=== PATIENT | female | born 1960 ===

== ENCOUNTER 2016-09-15 10:46 | Day surgery (SDC) | payer OTHER ==
[2016-09-15] MEDS ORDERED: Lactated Ringer's 500 ML IV ONE (11:49)
[2016-09-15 13:09] VITALS: TEMP 97; O2SAT 100
[2016-09-15 13:26] VITALS: BP 107/54; PULSE 63; RESP 14
== END 2016-09-15 13:27 | disposition home or self-care (01) ==
LOC: H.ENDO 10:46
PROVIDERS: ATTEND Internal Medicine Gastroenterology
DX: Z12.11 Encounter for screening for malignant neoplasm of colon (principal); K57.30 Diverticulosis of large intestine without perforation or abscess without bleeding; K64.0 First degree hemorrhoids

== ENCOUNTER 2017-12-22 18:42 | Emergency (ER) | payer OTHER ==
[2017-12-22 19:06] VITALS: RESP 16
[2017-12-22] MEDS ORDERED: Sodium Chloride 0.9% 1,000 ML IV STA (20:20)
[2017-12-22] MEDS ORDERED: Iohexol 240 (50 ml) PO ONE (20:21)
--- NOTE | 2017-12-22 20:23 | ED PDOC ---
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 Associated diffuse abdominal pain, bodyaches, nausea. Denies fever, vomiting, cough, congestion, chest pain, shortness of breath, palpitations, urinary symptoms, recent travel, sick contacts, recent antibiotic use. Patient tried Pepto, Aleve, and Tylenol with minimal relief. Past Medical History Reviewed: Historical Data, Nursing Documentation, Vital Signs Vital Signs: Last Vital Signs Temp 97.6 F 12/22/17 19:03 Pulse 70 12/22/17 19:03 Resp 16 12/22/17 19:03 BP 116/89 12/22/17 19:03 Pulse Ox 99 12/22/17 19:03 - Medical History PMH: No Chronic Diseases Denies: Asthma, Diabetes - Surgical History Surgical History: Appendectomy, Cholecystectomy - Family History Family History: States: No Known Family Hx - Immunization History Hx Tetanus Toxoid Vaccination: No Hx Influenza Vaccination: No Hx Pneumococcal Vaccination: No - Home Medications Home Medications: Ambulatory Orders Medication Instructions Recorded Ciprofloxacin HCl [Cipro] 500 mg PO BID #19 tab 12/23/17 Dicyclomine [Bentyl] 20 mg PO TID PRN #21 tab 12/23/17 metroNIDAZOLE [Flagyl] 500 mg PO TID #29 tab 12/23/17 - Allergies Allergies/Adverse Reactions: Allergies Allergy/AdvReac Type Severity Reaction Status Date / Time No Known Allergies Allergy Verified 12/22/17 19:03 Review of Systems ROS Statement: Except As Marked, All Systems Reviewed And Found Negative Gastrointestinal: Positive for: Nausea, Abdominal Pain, Diarrhea Physical Exam - Reviewed Nursing Documentation Reviewed: Yes Vital Signs Reviewed: Yes - Physical Exam Appears: Positive for: Well, Non-toxic, No Acute Distress Head Exam: Positive for: ATRAUMATIC, NORMAL INSPECTION, NORMOCEPHALIC Skin: Positive for: Normal Color Eye Exam: Positive for: Normal appearance ENT: Positive for: Normal ENT Inspection Cardiovascular/Chest: Positive for: Regular Rate, Rhythm Respiratory: Positive for: Normal Breath Sounds Gastrointestinal/Abdominal: Positive for: Bowel Sounds, Soft, Tenderness (diffuse) Back: Positive for: Normal Inspection Extremity: Positive for: Normal ROM Neurologic/Psych: Positive for: Alert, Oriented (x3) - Laboratory Results Result Diagrams: 12/22/17 20:50 12/22/17 20:50 - ECG O2 Sat by Pulse Oximetry: 99 - Progress ED Course And Treament: labs, urine, CT abd/pelvis, IV fluids, PO bentyl USArad impression: S/P cholecystectomy fatty liver severe diffuse pancolitis. Infectious and inflammatory etiologies are considered. Specifically please exclude pseudomembranous colitis. 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 [place] diet Follow up [facility]H/GI Return precautions given Disposition - Clinical Impression Clinical Impression: Pancolitis - Patient ED Disposition Is Patient to be Admitted: No Counseled Patient/Family Regarding: Studies Performed, Diagnosis, Need For Followup, Rx Given - Disposition Referrals: [facility] [place] [Outside] Disposition: Routine/Home Disposition Time: 00:47 Condition: IMPROVED Prescriptions: Ciprofloxacin HCl [Cipro] 500 mg PO BID #19 tab Dicyclomine [Bentyl] 20 mg PO TID PRN #21 tab PRN Reason: Pain, Mild (1-3) metroNIDAZOLE [Flagyl] 500 mg PO TID #29 tab Instructions: Diarrhea in Adolescents and Adults Print Language: IRISH
[2017-12-22 20:54] LABS: BASO # 0.1 K/uL (0.0-0.2); BASO % 1.3 % (0.0-2.0); EOS % 0.6 % (0.0-4.0); HEMOGLOBIN 14.4 g/dL (12.0-16.0); LYMPH # 1.5 K/uL (1.0-4.3); LYMPH % 17.9 % (20.0-40.0); MEAN CELL VOLUME 87.8 fl (81.0-99.0); MEAN CORPUSCULAR HEMOGLOBIN 29.8 pg (27.0-31.0); MEAN CORPUSCULAR HGB CONC 33.9 g/dL (33.0-37.0); MONO # 0.7 K/uL (0.0-0.8); MONO % 7.9 % (0.0-10.0); NEUT % 72.3 % (50.0-75.0); RBC 4.83 Mil/uL (3.80-5.20); WHITE BLOOD COUNT 8.3 K/uL (4.8-10.8)
[2017-12-22] MEDS ORDERED: Iohexol 240 (50 ml) ONE (20:56)
[2017-12-22 21:06] LABS: ALB/GLOB RATIO 1.1 (1.0-2.1); ALBUMIN 4.4 g/dL (3.5-5.0); ALT/SGPT 58 U/L (9-52); AST/SGOT 50 U/L (14-36); BLOOD UREA NITROGEN 11 mg/dl (7-17); CALCIUM 9.6 mg/dL (8.4-10.2); GFR NON-AFRICAN AMERICAN > 60; LIPASE 44 U/L (23-300)
[2017-12-22 22:05] LABS: SQUAMOUS EPITHIAL < 1 /hpf (0-5); URINE BACTERIA RARE (<OCC); URINE BILIRUBIN NEGATIVE (NEGATIVE); URINE BLOOD LARGE (NEGATIVE); URINE CLARITY CLEAR (Clear); URINE COLOR STRAW (YELLOW); URINE GLUCOSE (UA) NEG (Normal); URINE LEUKOCYTE ESTERASE NEG Leu/uL (Negative); URINE PROTEIN NEGATIVE (NEGATIVE); URINE UROBILINOGEN 0.2-1.0 mg/dL (0.2-1.0)
[2017-12-22] MEDS ORDERED: Iohexol 300 100 ML IJ ONE (22:29)
[2017-12-22] MEDS ORDERED: Sodium Chloride 0.9% 50 ML IV ONE (22:29)
[2017-12-23 01:56] VITALS: BP 123/80; PULSE 67; TEMP 98.6; O2SAT 98
--- NOTE | 2017-12-23 11:55 | CT ---
Date of service: 12/22/2017 PROCEDURE: CT Abdomen and Pelvis with contrast HISTORY: abd pain, diarrhea COMPARISON: CT scan of the abdomen and pelvis dated 07/20/2016 TECHNIQUE: Contrast dose: 90 mL Omnipaque 300 Radiation dose: Total exam DLP = mGy-cm. This CT exam was performed using one or more of the following dose reduction techniques: Automated exposure control, adjustment of the mA and/or kV according to patient size, and/or use of iterative reconstruction technique. FINDINGS: LOWER THORAX: Unremarkable. LIVER: Diffuse hepatic steatosis. 1.0 cm right hepatic lobe cyst no gross lesion or ductal dilatation. GALLBLADDER AND BILE DUCTS: Prior cholecystectomy with surgical clips in place. PANCREAS: Unremarkable. No gross lesion or ductal dilatation. SPLEEN: Unremarkable. ADRENALS: Unremarkable. No mass. KIDNEYS AND URETERS: Unremarkable. No hydronephrosis. No solid mass. VASCULATURE: Unremarkable. No aortic aneurysm. BOWEL: Prior partial right hemicolectomy with right lower quadrant ileocolic anastomosis. Wall thickening involving the remaining ascending colon, transverse colon and proximal descending colon with mild pericolic stranding. Mild colonic diverticulosis. No obstruction. No gross mural thickening. APPENDIX: Normal appendix. PERITONEUM: Unremarkable. No free fluid. No free air. LYMPH NODES: Unremarkable. No enlarged lymph nodes. BLADDER: Unremarkable. REPRODUCTIVE: Unremarkable. BONES: No acute fracture. Spinal and pelvic degenerative changes. OTHER FINDINGS: None. IMPRESSION: Prior partial right hemicolectomy. Transverse comp proximal descending and remnant ascending colitis, likely infectious/inflammatory in etiology.
== END 2017-12-23 01:20 | disposition home or self-care (01) ==
LOC: H.ER 18:42
DX: K51.00 Ulcerative (chronic) pancolitis without complications (principal)
CPT/HCPCS: 74177; 80053; 81003; 81025; 83690; 85025; 87045; 87086; 87230; 99283; J7030; Q9966; Q9967

== ENCOUNTER 2018-07-12 06:54 | Emergency (ER) | payer SELFPAY ==
[2018-07-12 07:13] VITALS: RESP 18; O2SAT 98; BMI 29.9
[2018-07-12] MEDS ORDERED: Sodium Chloride 0.9% 1,000 ML IV STA (07:58)
--- NOTE | 2018-07-12 08:05 | ED PDOC ---
HPI: Abdomen Time Seen by Provider: 07/12/18 07:12 Chief Complaint (Nursing): Abdominal Pain Chief Complaint (Provider): Abdominal Pain History Per: Patient History/Exam Limitations: no limitations Onset/Duration Of Symptoms: Days (3) Current Symptoms Are (Timing): Still Present Severity: Mild Location Of Pain/Discomfort: Diffuse Quality Of Discomfort: "Pain" Associated Symptoms: Nausea, Diarrhea. denies: Fever, Vomiting Additional Complaint(s): 58 year old female presents to the ED for an evaluation of constant abdominal pain onset for 3 days. Patient complains of associated symptoms of diarrhea, nausea, palpitations and frequent urination with mild dysuria. She is eating and drinking well. Otherwise, she denies fever, chills, chest pain, respiratory distress, cough, incontinence, back pain, hematuria, vaginal discharge or bleeding. PMD: [facility] Abnormal Vaginal Bleeding: No Past Medical History Reviewed: Historical Data, Nursing Documentation, Vital Signs Vital Signs: Last Vital Signs Temp 97.6 F 07/12/18 07:12 Pulse 69 07/12/18 07:12 Resp 18 07/12/18 07:12 BP 106/62 07/12/18 07:12 Pulse Ox 98 07/12/18 07:12 - Medical History PMH: No Chronic Diseases Denies: Asthma, Diabetes - Surgical History Surgical History: Appendectomy, Cholecystectomy - Family History Family History: States: Unknown Family Hx - Social History Current smoker - smoking cessation education provided: No Alcohol: None Drugs: Denies - Immunization History Hx Tetanus Toxoid Vaccination: No Hx Influenza Vaccination: No Hx Pneumococcal Vaccination: No - Home Medications Home Medications: Ambulatory Orders Medication Instructions Recorded Ciprofloxacin HCl [Cipro] 500 mg PO BID #19 tab 12/23/17 Dicyclomine [Bentyl] 20 mg PO TID PRN #21 tab 12/23/17 metroNIDAZOLE [Flagyl] 500 mg PO TID #29 tab 12/23/17 Famotidine [Pepcid] 20 mg PO DAILY PRN #6 tab 07/12/18 - Allergies Allergies/Adverse Reactions: Allergies Allergy/AdvReac Type Severity Reaction Status Date / Time No Known Allergies Allergy Verified 12/22/17 19:03 Review of Systems ROS Statement: Except As Marked, All Systems Reviewed And Found Negative Constitutional: Negative for: Fever, Chills Cardiovascular: Positive for: Palpitations. Negative for: Chest Pain Respiratory: Negative for: Cough, Shortness of Breath Gastrointestinal: Positive for: Nausea, Abdominal Pain, Diarrhea. Negative for: Vomiting Genitourinary Female: Positive for: Dysuria (mild), Frequency. Negative for: Incontinence, Hematuria, Vaginal Discharge, Vaginal Bleeding Musculoskeletal: Negative for: Leg Pain Skin: Negative for: Rash Physical Exam - Reviewed Nursing Documentation Reviewed: Yes Vital Signs Reviewed: Yes - Physical Exam Appears: Positive for: Non-toxic, No Acute Distress Head Exam: Positive for: ATRAUMATIC, NORMAL INSPECTION, NORMOCEPHALIC Skin: Positive for: Normal Color, Warm, Dry. Negative for: Rash Eye Exam: Positive for: EOMI, Normal appearance, PERRL ENT: Positive for: Normal ENT Inspection Neck: Positive for: Normal, Painless ROM, Supple. Negative for: Decreased ROM Cardiovascular/Chest: Positive for: Regular Rate, Rhythm. Negative for: Murmur Respiratory: Positive for: Normal Breath Sounds. Negative for: Wheezing, Respiratory Distress Gastrointestinal/Abdominal: Positive for: Tenderness (mild, diffuse abdomen ) Extremity: Positive for: Normal ROM. Negative for: Tenderness, Pedal Edema, Deformity Neurological/Psych: Positive for: Awake, Alert, Normal Tone, Oriented (x3) - Laboratory Results Result Diagrams: 07/12/18 08:10 07/12/18 08:10 Interpretation Of Abn Labs: mild elevated liver enzymes - ECG O2 Sat by Pulse Oximetry: 98 (RA) Pulse Ox Interpretation: Normal - Progress ED Course And Treament: 1112: Stable. AAOx3. Pain free. Tolerated PO. Fu with pcp. Medical Decision Making Medical Decision Making: Time: 0758 Impression: Abdominal pain Plan: CMP Lipase CBC w/ differential Bentyl 10 mg Normal saline 1000 mls/hr Pepcid 20mg Toradol 15mg Zofran Inj 4mg Reevaluation Scribe Attestation: Documented by Mauli Maniar, acting as a scribe for Eduardo Rodriguez MD Provider Scribe Attestation: All medical record entries made by the Scribe were at my direction and personally dictated by me. I have reviewed the chart and agree that the record accurately reflects my personal performance of the history, physical exam, medical decision making, and the department course for this patient. I have also personally directed, reviewed, and agree with the discharge instructions and disposition. Disposition - Clinical Impression Clinical Impression: Elevated liver enzymes, Abdominal discomfort - Patient ED Disposition Is Patient to be Admitted: No Counseled Patient/Family Regarding: Studies Performed, Diagnosis, Need For Followup, Rx Given - Disposition Referrals: [facility] [Outside] - 07/13/18 Disposition: Routine/Home Disposition Time: 11:13 Condition: STABLE Additional Instructions: Return if not better in 3 days. See your doctor without fail to get further evaluation of your elevated liver enzymes. Prescriptions: Famotidine [Pepcid] 20 mg PO DAILY PRN #6 tab PRN Reason: Pain Instructions: Stomach Ache and Stomach Upset, Liver Function Test Print Language: ANGUILLAN
[2018-07-12 08:44] LABS: BASO % 0.2 % (0.0-2.0); EOS # 0.2 K/uL (0.0-0.7); EOS % 1.9 % (0.0-4.0); HEMOGLOBIN 13.5 g/dL (12.0-16.0); LYMPH # 1.6 K/uL (1.0-4.3); LYMPH % 19.4 % (20.0-40.0); MEAN CELL VOLUME 89.9 fl (81.0-99.0); MEAN CORPUSCULAR HEMOGLOBIN 29.9 pg (27.0-31.0); MEAN CORPUSCULAR HGB CONC 33.3 g/dL (33.0-37.0); MEAN PLATELET VOLUME 8.5 fl (7.2-11.7); MONO # 0.7 K/uL (0.0-0.8); MONO % 7.9 % (0.0-10.0); NEUT # 5.9 K/uL (1.8-7.0); NEUT % 70.6 % (50.0-75.0); NRBC % 0.1 % (0.0-0.0); RBC 4.52 Mil/uL (3.80-5.20); RED CELL DISTRIBUTION WIDTH 13.5 % (11.5-14.5); WHITE BLOOD COUNT 8.3 K/uL (4.8-10.8)
[2018-07-12 09:10] LABS: ALB/GLOB RATIO 1.3 (1.0-2.1); ALBUMIN 4.2 g/dL (3.5-5.0); ALT/SGPT 79 U/L (9-52); AST/SGOT 61 U/L (14-36); BLOOD UREA NITROGEN 10 mg/dl (7-17); CALCIUM 9.1 mg/dL (8.4-10.2); GFR NON-AFRICAN AMERICAN > 60; LIPASE 69 U/L (23-300)
[2018-07-12 11:22] VITALS: BP 102/68; PULSE 58; TEMP 97.9
== END 2018-07-12 11:35 | disposition home or self-care (01) ==
LOC: H.ER 06:54
DX: R74.8 Abnormal levels of other serum enzymes (principal); R10.9 Unspecified abdominal pain
CPT/HCPCS: 80053; 83690; 85025; 96361; 96374; 96375; 99284; J1885; J2405; J7030